=== PATIENT | female | born 1935 | race Caucasian/White ===

== ENCOUNTER 2016-08-07 18:04 | Emergency (ER) | payer MEDICARE, OTHER ==
[~2016-08-07] VITALS: Ht 160 cm; Wt 99.8 kg
[~2016-08-07 18:04] MED LIST: ASPI-482 PO; Albuterol Sulfate NEB; BISA10SU2 RC; DULO30CA43 PO; FURO40TA4 PO; HYDR-2762 PO; INSU100I17 SQ; INSU100I18 SQ; INSU100I27 SQ; IPRA3AMP NEB; LEVO250T25 PO; LEVO25TA4 PO; LORA10TA3 PO; LOSA100T6 PO; MAGN400O4 PO; METO25TA4 PO; NA P133E2 RC; NYST60PO TP; OXYB5TAB7 PO; POTA20TA84 PO; SENN1TAB21 PO; SIMV20TA3 PO; [UNRECOGNIZED DRUG - CODE] PO
--- NOTE | 2016-08-07 19:14 | PHYS DOC ---
Past Medical History Past Medical History: CHF, Diabetes-Type II, Hypertension, Other Additional Past Medical Histor: neuropathy Past Surgical History: Coronary Bypass Surgery, Hysterectomy, Other Additional Past Surgical Histo: vein stripping Alcohol Use: None Drug Use: None Adult General Chief Complaint Chief Complaint: MECHANICAL FALL [facility] HPI Patient is a 81 year old female arrives in the emergency room tonight via EMS transport from local long term secondary to a fall out of wheelchair when patient slipped out of the wheelchair and struck her head on the shower delmi in the bathroom at the long term. Patient essentially wheelchair-bound and requires a lot of assistance in lifting and transferring due to her age, deconditioning, obesity and arthritis in her back and lower extremities. This occurred approximately 6 hours prior to arrival here in the emergency department. There is no reported loss of consciousness, seizure-like activity or vomiting. Patient is not on anticoagulants. Patient is generally weak and wheelchair bound and requires left assist in transfer assist. Patient also complains of left knee pain secondary to the fall. She denies any previous injuries to her left knee. Review of Systems Review of Systems Constitutional: Denies fever or chills [] Eyes: Denies change in visual acuity, redness, or eye pain [] HENT: Denies nasal congestion or sore throat [] Respiratory: Denies cough or shortness of breath [] Cardiovascular: No additional information not addressed in HPI [] GI: Denies abdominal pain, nausea, vomiting, bloody stools or diarrhea [] : Denies dysuria or hematuria [] Musculoskeletal: Denies back pain or joint pain [] Integument: Denies rash or skin lesions [] Neurologic: Denies headache, focal weakness or sensory changes [] Endocrine: Denies polyuria or polydipsia [] Allergies Allergies Allergies Coded Allergies Type Severity Reaction Last Updated Verified No Known Drug Allergies 05/25/13 No Physical Exam Physical Exam Constitutional: Well developed, well nourished, no acute distress, non-toxic appearance. [] HENT: Normocephalic, bilateral external ears normal, oropharynx moist, no oral exudates, nose normal. White abrasion from the patient's nasal bridge over her forehead into her hairline of the scalp. There is mild swelling to this area. There is no palpable instability, crepitus or depression. There is no active bleeding from the nose. There is no septal hematoma. Eyes: PERRLA, EOMI, conjunctiva normal, no discharge. [] Neck: Normal range of motion while patient is explaining how she fell, supple, no stridor. Patient complains of tenderness to palpation to the left paraspinous soft tissues at the level of C3-C6. There is no midline tenderness, step-off or deformity. Cardiovascular:Heart rate regular rhythm, no murmur [] Lungs & Thorax: Bilateral breath sounds clear to auscultation [] Abdomen: Bowel sounds normal, soft, no tenderness, no masses, no pulsatile masses. [] Skin: Warm, dry, no erythema, no rash. [] Back: No tenderness, no CVA tenderness. Patient has no complaints of pelvic or hip pain. There is no tenderness to palpation to the pelvis or hips. Extremities: Left knee with an abrasion overlying the patella. There is no fusiform swelling/effusion of the left knee. Extensor mechanism is intact. There is tenderness to palpation to the inferior pole of the patella without instability or crepitus. Neurologic: Alert and oriented X 3, normal motor function, normal sensory function, no focal deficits noted. [] Psychologic: Affect normal, judgement normal, mood normal. [] Current Patient Data Vital Signs Vital Signs Date Time Temp Pulse Resp B/P Pulse Ox O2 Delivery O2 Flow Rate FiO2 08/07/16 20:17 61 164/70 08/07/16 18:18 98.0 20 92 Room Air 98.0 EKG EKG [] Radiology/Procedures Radiology/Procedures [facility] [address] [place] [address] IMAGING REPORT Signed PATIENT: THANIA JONES ACCOUNT: [id number] : 1935 LOCATION: ER AGE: 81 SEX: F EXAM STATUS: REG ER ORD. PHYSICIAN: BRANDON DOLL REASON: head/face injury after fall earlier today PROCEDURE: CT HEAD AND MAXILLOFACIAL WO PROCEDURE CT head, maxillofacial, and cervical spine without contrast. HISTORY Fall, head and facial injury. Neck pain. COMPARISON CT head without contrast November 20, 2013. TECHNIQUE Helical CT imaging of the brain, facial bones, and of the cervical spine is performed without IV contrast. PQRS: One or more the following individualized dose reduction techniques were utilized for the study: 1. Automated exposure control. 2. Adjustment of the mA and/or kV according to patient size. 3. Use of iterative reconstruction technique. FINDINGS No acute calvarial fracture. Visualized globes and orbits are intact. No acute facial bone fracture is seen. The mastoid air cells are clear. Moderate sized left maxillary sinus mucous retention cyst or polyp. Other paranasal sinuses are clear. The ostiomeatal complexes are patent. No midline shift or mass effect. No extra-axial fluid collection or intraparenchymal hemorrhage. Mcfadden-white matter differentiation is preserved. Basilar cisterns are patent. The ventricles and sulci are prominent, consistent with age-related cerebral atrophy. There is minimal periventricular white matter hypoattenuation, nonspecific but commonly due to chronic small vessel ischemic disease in a patient of this age. No acute fracture or subluxation of the cervical spine. There is ACDF of C3-C4. Severe narrowing of the C4/C5 disc space. There is degenerative endplate spurring in the cervical spine. Vacuum disc phenomenon C6/C7. There is multilevel facet hypertrophy. There is multilevel neural foraminal narrowing contributed to by uncovertebral joint hypertrophy. There is likely multilevel central canal stenosis that may be severe. Visualized lung apices are clear. Soft tissues of the neck unremarkable. IMPRESSION 1. No acute intracranial abnormality. 2. No acute fracture or subluxation of the cervical spine. Advanced degenerative spondylosis. 3. No acute facial bone fracture. Electronically signed by: Gabriel Fernandez MD (Aug 07, 2016 19:49:56) DICTATED and SIGNED BY: GABRIEL FERNANDEZ MD DATE: 08/07/161948 CC: BRANDON DOLL; NON,STAFF; NIEVES PIEDRA ~ 3 views of patient's left knee were performed with adequate technique. There is moderate to severe degenerative joint disease without any evidence of acute bony injury. Course & Med Decision Making Course & Med Decision Making Pertinent Labs and Imaging studies reviewed. (See chart for details) [] Dragon Disclaimer Dragon Disclaimer This electronic medical record was generated, in whole or in part, using a voice recognition dictation system. Departure Departure Impression: Primary Impression: Contusion of face Additional Impressions: Cervical sprain Contusion of left knee Disposition: HOME, SELF-CARE Condition: GOOD Referrals: NIEVES PIEDRA (PCP) Patient Instructions: Cervical Sprain, [id number], Contusion, [id number], Facial or Scalp Contusion, [id number] Additional Instructions: 1. CT scan of head, facial bones and cervical spine show no skull fractures, intracranial bleeding, facial bone fractures or cervical spine fractures. X- rays of left knee show no broken bones in the knee. 2. Apply ice to the areas every 2 hours for 20-30 minutes at a time. Acetaminophen every 4-6 hours for the discomfort. 3. Follow-up with primary care doctor within the next 3-4 days. Problem Qualifiers Primary Impression: Contusion of face Encounter type: initial encounter Qualified Code: S00.83XA - Contusion of other part of head, initial encounter Additional Impressions: Cervical sprain Encounter type: initial encounter Qualified Code: S13.9XXA - Sprain of joints and ligaments of unspecified parts of neck, initial encounter Contusion of left knee Encounter type: initial encounter Qualified Code: S80.02XA - Contusion of left knee, initial encounter BRANDON DOLL Aug 07, 2016 19:14
--- NOTE | 2016-08-07 19:51 | RAD ---
PROCEDURE CT head, maxillofacial, and cervical spine without contrast. HISTORY Fall, head and facial injury. Neck pain. COMPARISON CT head without contrast November 20, 2013. TECHNIQUE Helical CT imaging of the brain, facial bones, and of the cervical spine is performed without IV contrast. PQRS: One or more the following individualized dose reduction techniques were utilized for the study: 1. Automated exposure control. 2. Adjustment of the mA and/or kV according to patient size. 3. Use of iterative reconstruction technique. FINDINGS No acute calvarial fracture. Visualized globes and orbits are intact. No acute facial bone fracture is seen. The mastoid air cells are clear. Moderate sized left maxillary sinus mucous retention cyst or polyp. Other paranasal sinuses are clear. The ostiomeatal complexes are patent. No midline shift or mass effect. No extra-axial fluid collection or intraparenchymal hemorrhage. Mcfadden-white matter differentiation is preserved. Basilar cisterns are patent. The ventricles and sulci are prominent, consistent with age-related cerebral atrophy. There is minimal periventricular white matter hypoattenuation, nonspecific but commonly due to chronic small vessel ischemic disease in a patient of this age. No acute fracture or subluxation of the cervical spine. There is ACDF of C3-C4. Severe narrowing of the C4/C5 disc space. There is degenerative endplate spurring in the cervical spine. Vacuum disc phenomenon C6/C7. There is multilevel facet hypertrophy. There is multilevel neural foraminal narrowing contributed to by uncovertebral joint hypertrophy. There is likely multilevel central canal stenosis that may be severe. Visualized lung apices are clear. Soft tissues of the neck unremarkable. IMPRESSION 1. No acute intracranial abnormality. 2. No acute fracture or subluxation of the cervical spine. Advanced degenerative spondylosis. 3. No acute facial bone fracture. Electronically signed by: Gabriel Fernandez MD (Aug 07, 2016 19:49:56)
[2016-08-07 20:17] VITALS: BP 164/70
--- NOTE | 2016-08-08 08:56 | RAD ---
Three-view left knee radiographs 08/07/2016 Clinical history: Left knee pain post fall. Portable AP, lateral and oblique digital radiographs of the left knee were obtained. Moderate to severe degenerative changes are seen involving all 3 compartments of the left knee. No acute fracture or dislocation is seen. There is a probable [id number] sized left suprapatellar joint effusion. Atherosclerotic calcification of the left popliteal artery and its branches is noted. Impression: No fracture or dislocation of the left knee is seen.
== END 2016-08-07 21:04 | disposition home or self-care (01) ==
LOC: ER 18:04
DX: S13.9XXA Sprain of joints and ligaments of unspecified parts of neck, initial encounter (principal); S00.83XA Contusion of other part of head, initial encounter; S80.02XA Contusion of left knee, initial encounter; I11.0 Hypertensive heart disease with heart failure; I50.9 Heart failure, unspecified; E11.40 Type 2 diabetes mellitus with diabetic neuropathy, unspecified; M19.90 Unspecified osteoarthritis, unspecified site; E66.9 Obesity, unspecified; Z95.1 Presence of aortocoronary bypass graft; Z68.39 Body mass index [BMI] 39.0-39.9, adult; W05.0XXA Fall from non-moving wheelchair, initial encounter; Y93.89 Activity, other specified; Y92.89 Other specified places as the place of occurrence of the external cause; Y99.8 Other external cause status
CPT/HCPCS: 70450; 70486; 72125; 73562; 99284-25